=== PATIENT | male | born 1985 | race Caucasian/White ===

== ENCOUNTER 2022-07-13 14:18 | Emergency (ER) | payer OTHER ==
[2022-07-13 14:25] VITALS: BP 120/81; PULSE 68; RESP 18; TEMP 98; BMI 28.3
== END 2022-07-13 16:45 | disposition home or self-care (01) ==
LOC: JERFT 14:18
PROC: 2W3JX1Z Immobilization of Right Finger using Splint (ICD-10-PCS; principal; 2022-07-13)
DX: S62.324A Displaced fracture of shaft of fourth metacarpal bone, right hand, initial encounter for closed fracture (principal); W22.8XXA Striking against or struck by other objects, initial encounter
CPT/HCPCS: 73110-TC-RT-FY; 73130-TC-RT-FY; 99283-25